=== PATIENT | female | born 1990 | race Caucasian/White ===

== ENCOUNTER 2017-09-01 09:55 | Inpatient (IN) | END 2017-09-04 17:30 | disposition home or self-care (01) | DRG 781 ==

== ENCOUNTER 2017-11-29 10:45 | Outpatient (CLI) | END 2017-11-29 15:54 | disposition home or self-care (01) ==

== ENCOUNTER 2017-11-30 16:57 | Inpatient (IN) | END 2017-12-02 17:00 | disposition home or self-care (01) | DRG 833 ==

== ENCOUNTER 2018-03-08 01:40 | Inpatient (IN) | payer OTHER ==
[~2018-03-08] VITALS: Ht 170.2 cm; Wt 65.4 kg
[~2018-03-08 01:40] MED LIST: PNV11TAB PO
[2018-03-08 01:59] VITALS: Ht 170.2 cm; Wt 65.4 kg
[2018-03-08 02:00] VITALS: BP 126/86; PULSE 103; RESP 18
[2018-03-08] MEDS ORDERED: AMPICILLIN 2 GM/NS (PMX) 100 ML IV ONE (04:00)
[2018-03-08] MEDS ORDERED: OXYTOCIN 30 UNITS/LR 500 ML IV SCH ×3 (04:00→22:30)
[2018-03-08] MEDS ORDERED: CARBOPROST 250 MCG INJ IM PRN (04:00)
[2018-03-08] MEDS ORDERED: METHYLERGONOVINE 0.2 MG INJ IM PRN (04:00)
[2018-03-08] MEDS ORDERED: LIDOCAINE 1% (MPF) 30 ML INJ INJ PRN (04:00)
[2018-03-08] MEDS ORDERED: MISOPROSTOL 200 MCG TAB PR PRN (04:00)
[2018-03-08] MEDS ORDERED: BUTORPHANOL 2 MG INJ IV PRN (04:00)
[2018-03-08] MEDS ORDERED: OXYTOCIN 30 UNITS/LR 500 ML IV PRN (04:00)
[2018-03-08] MEDS: LACTATED RINGER'S 1,000 ML IV SCH ×4 (05:14→23:33)
[2018-03-08] MEDS ORDERED: AMPICILLIN 1 GM/NS (PMX) 50 ML IV SCH (08:00)
[2018-03-08] MEDS: AMPICILLIN 1 GM/NS (PMX) 50 ML IV SCH ×4 (09:20→21:26)
--- NOTE | 2018-03-08 11:29 | HP ---
Date/Time of Note Date/Time of Note DATE: 03/08/18 TIME: 11:21 OB - History Hx of Present Free Text/Dictation Patient came admitted today due to labor pains and 3 cm dilatation at 36.6 weeks of the patient started her labor with bloody show and with severe pain so she came in for delivery She had a difficult with hyperemesis throughout the whole she had a PICC line and also ultimately she had anemia that was treated with IV iron Now her CBC is with a hemoglobin of 10 Estimated Due Date: Mar 30, 2018 : 2 Para: 1 Care: Good Care Obstetrical Complications: Hyperemesis Medical Complications: None Past Family/Social History * Past Medical, Surgical, Family and Obstetric Histories reviewed from chart. Blood Type: O+ Rubella: immune RPR/VDRL: Negative GBS Status: Positive HBsAG: Negative OB Admission Exam Vital Signs Vital Signs Vital Signs Date Temp Pulse Resp B/P (MAP) Pulse Ox O2 O2 Flow FiO2 Time Delivery Rate 03/08/18 98.6 103 18 126/86 Room Air 02:00 (99) Physical Exam HEENT: WNL Heart: Rhythm Normal Lungs: Clear, Equal Abdomen: WNL Extremities: Normal Reflexes: Normal Cervical Dilatation: 3cm Effacement: 50% Station: Ballotable Amniotic Fluid: Clear Decelerations: No Decelerations Varibility: Moderate Contractions on Admission: 6-10 Minutes Apart Intensity: Moderate Last 72 hours Lab Results CBC & BMP 03/08/18 05:00 GRAY SAEED MD Mar 08, 2018 11:29
[2018-03-08] MEDS ORDERED: AZITHROMYCIN 500MG/NS (PMX) 250 ML IVPB SCH (22:30)
[2018-03-08] MEDS ORDERED: ACETAMINOPHEN 500 MG TAB PO PRN (22:30)
--- NOTE | 2018-03-08 23:34 | PREAC ---
Date/Time of Note Date/Time of Note DATE: 03/08/18 TIME: 23:33 Anesthesia Eval and Record Evaluation Time Pre-Procedure Interview DATE: 03/08/18 TIME: 23:33 Age 28 Sex female NPO: 8 hrs Preoperative diagnosis Planned procedure labor epidural Past Medical History Past Medical History: None Surgery & Anesthesia Issues No known issue Meds Anticoagulation: No Beta Florence within 24 hr: No Reason Beta Florence not given: Pt. not on B-Florence Reported Medications [id number] ( 19) 1 Each Tablet, 1 TAB PO DAILY, TAB 11/29/17 Current Medications Lactated Ringer's 1,000 ml @ 125 mls/hr Q8H IV Last administered on 03/08/18at 18:42; Admin Dose 125 MLS/HR; Start 03/08/18 at 03:51 Butorphanol Tartrate (Stadol) 2 mg Q2H PRN IV PAIN Last administered on 03/08/18at 05:29; Admin Dose 2 MG; Start 03/08/18 at 04:00 Lidocaine (Xylocaine 1% (Mpf)) 30 ml ONCE PRN INJ EPISIOTOMY; Start 03/08/18 at 04:00 Oxytocin/Lactated Ringer's 500 ml @ 500 mls/hr ONCE POST IV ; Start 03/08/18 at 04:00 Oxytocin/Lactated Ringer's 500 ml @ 125 mls/hr POST IV ; Start 03/08/18 at 04:00 Oxytocin/Lactated Ringer's 500 ml @ 0 mls/hr ONCE PRN IV VAGINAL BLEEDING; Start 03/08/18 at 04:00 Methylergonovine Maleate (Methergine) 0.2 mg ONCE PRN IM VAGINAL BLEEDING; Start 03/08/18 at 04:00 Carboprost Tromethamine (Hemabate) 250 mcg ONCE PRN IM VAGINAL BLEEDING; Start 03/08/18 at 04:00 Misoprostol (Cytotec) 1,000 mcg ONCE PRN CA VAGINAL BLEEDING; Start 03/08/18 at 04:00 Ampicillin 50 ml @ 100 mls/hr Q4H IV Last administered on 03/08/18at 21:26; Admin Dose 100 MLS/HR; Start 03/08/18 at 09:00 Azithromycin 250 ml @ 250 mls/hr Q24H IVPB Last administered on 03/08/18at 22:33; Admin Dose 250 MLS/HR; Start 03/08/18 at 22:30 Acetaminophen (Tylenol Tab) 1,000 mg Q8 PRN PO MILD PAIN(1-3)OR ELEVATED TEMP Last administered on 03/08/18at 22:44; Admin Dose 1,000 MG; Start 03/08/18 at 22:30 Oxytocin/Lactated Ringer's 500 ml @ 0 mls/hr FOR AUGMENTATION IV ; Start 03/08/18 at 22:30 Meds reviewed: Yes Allergies Coded Allergies: No Known Allergy (Unverified , 03/08/18) Allergies Reviewed: Yes Labs/Studies Labs Reviewed: Reviewed by anesthesiologist Result Diagram: 03/08/18 0500 Laboratory Tests 03/08/18 05:00 Blood Bank Test 03/08/18 05:00 Antibody Identification Completed Antibody Screen POSITIVE Antigen Identification Completed Blood Type O POSITIVE Rh Immune Globulin Candidate NO test: Positive Pre-procedure Exam Last vitals Vital Signs Date Temp Pulse Resp B/P (MAP) Pulse Ox O2 O2 Flow FiO2 Time Delivery Rate 03/08/18 99.7 22:44 03/08/18 103 18 126/86 Room Air 02:00 (99) Airway: Adequate mouth opening, Adequate thyromental dist Mallampati: Mallampati II Teeth: Normal Lung: Normal Heart: Normal ASA Physical Status ASA physical status: 1 Emergency: None Planned Anesthetic Neuraxial: Epidural Pre-operative Attestations Prior to commencing anesthesia and surgery, the patient was re-evaluated, there was verification of: *The patient's identity *The results of appropriate recent lab work and preoperative vital signs *The above evaluation not changing prior to induction *Anesthetic plan, risk benefits, alternative and complications discussed with patient/family; questions answered; patient/family understands, accepts and wishes to proceed. ESDRAS HANLEY Mar 08, 2018 23:34
[2018-03-08] MEDS ORDERED: FENTAnyl 2MCG/ML-ROPIV 0.2% 100 ML ONE (23:35)
[2018-03-09] MEDS ORDERED: NALOXONE (0.4 MG/ML) INJ IV PRN
[2018-03-09] MEDS ORDERED: KETOROLAC 30 MG INJ IV PRN
[2018-03-09] MEDS ORDERED: HYDROmorphONE 0.5 MG/0.5 ML SYG IV PRN ×2
--- NOTE | 2018-03-09 00:02 | PAC ---
Date/Time of Note Date/Time of Note DATE: 03/09/18 TIME: 00:02 Post-Anesthesia Notes Post-Anesthesia Note Last documented vital signs Vital Signs Date Temp Pulse Resp B/P (MAP) Pulse Ox O2 O2 Flow FiO2 Time Delivery Rate 03/08/18 99.7 22:44 03/08/18 103 18 126/86 Room Air 02:00 (99) Activity: WNL Respiratory function: WNL Cardiovascular function: WNL Mental status: Baseline Pain reasonably controlled: Yes Hydration appropriate: Yes Nausea/Vomiting absent: Yes ESDRAS HANLEY Mar 09, 2018 00:02
[2018-03-09] MEDS: LACTATED RINGER'S 1,000 ML IV SCH ×3 (00:11→08:22)
[2018-03-09] MEDS: FENTAnyl 2MCG/ML-ROPIV 0.2% 100 ML BAG EPI SCH ×2 (00:52→09:35)
[2018-03-09] MEDS: AMPICILLIN 1 GM/NS (PMX) 50 ML IV SCH ×4 (01:11→12:55)
[2018-03-09] MEDS ORDERED: ACETAMINOPHEN 500 MG TAB PO PRN ×2 (05:30→14:30)
--- NOTE | 2018-03-09 14:19 | LDN ---
Date/Time of Note Date/Time of Note DATE: 03/09/18 TIME: 14:15 Delivery Summary 3 7 weeks Spontaneous labor Augmentation of labor Spontaneous vaginal delivery under epidural anesthesia Baby girl 9 Bilateral periurethral lacerations and small vaginal tear repaired under epidural anesthesia. No complications Maternal fever from upper respiratory infection Weeks of Gestation 37 Placenta Delivered: Spontaneously Meconium: none Episiotomy: No Laceration repair: Bilateral paraurethral and small vaginal laceration Anesthesia type: Epidural Estimated blood loss: 200 Sponge & Needle done & correct: Yes All needle counts correct: Yes Any foreign bodies felt in the: No Infant Delivery Information Sex Infant Sex: female Apgars 1 Minute: 9 5 Minute: 9 Suctioning Nose & mouth suctioned at mehrdad: Yes Delee suction performed: No Umbilical Cord Umbilical cord with: 3 Vessels Cord presentations: no nuchal cord Cord Blood was obtained: Yes Mother & Baby Disposition Disposition Mom & Baby to Maternity; Good: Yes GRAY SAEED MD Mar 09, 2018 14:19
[2018-03-09] MEDS ORDERED: IBUPROFEN 800 MG TAB ONE (14:28)
[2018-03-09] MEDS ORDERED: SENNA/DOCUSATE NA (8.6MG/50MG) TAB PO PRN (14:30)
[2018-03-09] MEDS ORDERED: OXYTOCIN 30 UNITS/LR 500 ML IV PRN (14:30)
[2018-03-09] MEDS ORDERED: DIPHENHYDRAMINE 50 MG INJ IV PRN ×2 (14:30)
[2018-03-09] MEDS ORDERED: ONDANSETRON 4 MG TAB PO PRN (14:30)
[2018-03-09] MEDS ORDERED: MAGNESIUM HYDROXIDE 30ML CUP PO PRN (14:30)
[2018-03-09] MEDS ORDERED: ACETAMINOPHEN 325 MG TAB PO PRN ×2 (14:30)
[2018-03-09] MEDS ORDERED: HYDROCODONE/APAP (5/325) TAB PO PRN ×2 (14:30)
[2018-03-09] MEDS ORDERED: DIPHENHYDRAMINE 25 MG CAP PO PRN (14:30)
[2018-03-09] MEDS ORDERED: MISOPROSTOL 200 MCG TAB PR PRN (14:30)
[2018-03-09] MEDS ORDERED: DIBUCAINE 1% 30 GM OINT TOP PRN (14:30)
[2018-03-09] MEDS ORDERED: ONDANSETRON 4 MG INJ IV PRN ×2 (14:30)
[2018-03-09] MEDS ORDERED: METHYLERGONOVINE 0.2 MG INJ IM PRN (14:30)
[2018-03-09] MEDS ORDERED: WITCH HAZEL/GLYCERIN PAD PR PRN (14:30)
[2018-03-09] MEDS ORDERED: BENZOCAINE 20% 56 ML SPRAY TOP PRN (14:30)
[2018-03-09] MEDS ORDERED: CARBOPROST 250 MCG INJ IM PRN (14:30)
[2018-03-09] MEDS: IBUPROFEN 800 MG TAB PO SCH (14:33)
[2018-03-09 17:30] VITALS: BP 112/65; PULSE 89; RESP 18
[2018-03-09] MEDS: LANOLIN HPA 1 PKT TOP PRN (17:49)
[2018-03-09 18:15] VITALS: BP 115/75; PULSE 99; RESP 18
[2018-03-09] MEDS: LACTATED RINGER'S 1,000 ML IV* SCH ×2 (18:27→22:00)
[2018-03-09 22:29] VITALS: BP 111/55; PULSE 98; RESP 18
[2018-03-10] MEDS: CEFAZOLIN 2 GM/50 ML (PMX) 50 ML IVPB SCH ×3 (00:17→13:46)
[2018-03-10] MEDS: IBUPROFEN 800 MG TAB PO SCH ×4 (00:18→17:57)
[2018-03-10] MEDS: LACTATED RINGER'S 1,000 ML IV* SCH ×3 (06:06→22:06)
[2018-03-10 08:25] VITALS: BP 116/57; PULSE 70; RESP 17
[2018-03-10] MEDS: AZITHROMYCIN 250 MG TAB PO SCH (10:06)
--- NOTE | 2018-03-10 11:36 | PD.PPDC ---
S[employer] WAITER Discharge Instruction Condition [id number] Patient Condition: Umtlt0h Good Diet [id number] Diet: [id number] Resume Regular Diet Activity/Restrictions [id number] Activity: [id number] Normal Activity May Shower [id number] Restrictions: [id number] No Sexual Activity Nothing in the Vagina No [place] No Tampons, douche Follow-up Follow-up with Physician: 6, Week/Weeks Return to clinic for [id number] [employer] Instructions: [id number] Fever greater than 101 Chills Worsening abdominal pain Excessive Vaginal Bleeding [id number] OB Instructions: [id number] Breast Tenderness Depression JIMMY CARRION MD Mar 10, 2018 11:36
--- NOTE | 2018-03-10 11:38 | DS ---
Date/Time of Note Date/Time of Note DATE: 03/10/18 TIME: 11:37 Obstetrical Discharge Record Final Diagnosis Final Diagnosis: Term delivered Vaginal Delivery Obstetrical Delivery: Spontaneous, Laceration, Repaired Complications Augmentation: Yes Induction: No Condition on Discharge Physical Assessment Last Vitals: T=98.5 BP 111/55 Voiding: Yes Bowel Movement: Yes Breast: Soft, non-tender Fundus: Firm Calf Tenderness: No Patient Condition: Good JIMMY CARRION MD Mar 10, 2018 11:38
[2018-03-10 11:40] VITALS: BP 86/57; PULSE 52; RESP 18
[2018-03-10 16:45] VITALS: BP 106/68; PULSE 78; RESP 18
[2018-03-10 20:10] VITALS: BP 117/60; PULSE 71; RESP 16
[2018-03-11] MEDS: LANOLIN HPA 1 PKT TOP PRN (01:16)
[2018-03-11 04:30] VITALS: BP 118/68; PULSE 74; RESP 16
[2018-03-11] MEDS: IBUPROFEN 800 MG TAB PO SCH ×3 (06:00→12:00)
[2018-03-11] MEDS: LACTATED RINGER'S 1,000 ML IV* SCH (06:06)
[2018-03-11 08:20] VITALS: BP 91/62; PULSE 71; RESP 16
[2018-03-11] MEDS ORDERED: DIPHTH/TET/ACEL PERTUSS (ADULT) 0.5 ML VIAL IM* ONE (09:00)
[2018-03-11] MEDS ORDERED: MEASLES,MUMPS,RUBELLA VACCINE INJ SC* ONE (09:00)
[2018-03-11] MEDS ORDERED: VARICELLA VACCINE LIVE/PF 1,350 UNIT/0.5 ML ML SC* ONE (09:00)
[2018-03-11] MEDS: AZITHROMYCIN 250 MG TAB PO SCH (09:22)
== END 2018-03-11 16:10 | disposition home or self-care (01) | DRG 807 ==
LOC: OBT 01:40 → L-D 01:40 → OBT 03:45 → PP1 03-09 17:05
PROVIDERS: ADMIT Obstetrics & Gynecology; ATTEND Obstetrics & Gynecology
PROC: 10E0XZZ Delivery of Products of Conception, External Approach (ICD-10-PCS; principal; 2018-03-08)
PROC: 0UQMXZZ Repair Vulva, External Approach (ICD-10-PCS; 2018-03-08)
DX: O71.82 Other specified trauma to perineum and vulva (principal); Z37.0 Single live birth; Z3A.37 37 weeks gestation of pregnancy
CPT/HCPCS: 62319; 76815; 76818; 81001; 83605; 83615; 85025; 85610; 85730; 86592; 86850; 86870; 86900; 86901; 86902; 87070; 87340; 90716; 99464; G0463; J0290; J0456; J0595; J0690; J2590; J3010; J7120